=== PATIENT | female | born 1975 | race Caucasian/White ===

== ENCOUNTER 2022-11-17 14:59 | Emergency (ER) | payer BC ==
[~2022-11-17] VITALS: Ht 162.6 cm; Wt 53.1 kg
[2022-11-17] MEDS ORDERED: IV NORMAL SALINE 1000 ML BAG IV ONE (15:15)
[2022-11-17 15:27] LABS: HEMATOCRIT 37.5 % (31.2-41.9); MEAN CORPUSCULAR HEMOGLOBIN 26.5 uug (24.7-32.8); MEAN CORPUSCULAR VOLUME 79.5 fL (75.5-95.3); PLATELET COUNT (AUTO) 190 K/uL (179-408)
[2022-11-17 15:33] LABS: *BILIRUBIN,URIN NEGATIVE (NEGATIVE); *CLARITY,URINE CLEAR (CLEAR); *COLOR,URINE YELLOW (YELLOW); *KETONES,URINE NEGATIVE (NEGATIVE); *UROBILINOGEN,URINE 0.2 E.U./dl (NORMAL); LEUKOCYTE ESTERASE ,URINE NEGATIVE (NEGATIVE); NITRITE, URINE NEGATIVE (NEGATIVE); PH,URINE 6.5 (5.0-8.0); UGLUCOSE NEGATIVE (NEGATIVE)
[2022-11-17 15:34] LABS: *URINE HCG, QUAL NEG (NEGATIVE)
[2022-11-17 15:35] LABS: *BLOOD, URINE TRACE (NEGATIVE)
[2022-11-17 15:35] LABS: POTASSIUM 3.5 mmol/L (3.5-5.1)
[2022-11-17 15:41] LABS: BILIRUBIN,DIRECT 0.2 mg/dL (0.0-0.2); BILIRUBIN,TOTAL 1.1 mg/dL (0.2-1.0); TOTAL PROTEIN, SERUM 6.4 g/dL (6.4-8.2)
[2022-11-17] MEDS ORDERED: OMEP40CA21 PO (16:09)
--- NOTE | 2022-11-17 16:27 | NUR ---
Patient is resting comfortably on gurney. PATIENT IS PAIN FREE AT THIS TIME.
[2022-11-17 16:32] LABS: BACTERIA,URINE NONE SEEN /HPF (NONE SEEN); RBC,URINE 0-3 /HPF (0-3); WBC,URINE 80-100 /HPF (0-3)
[2022-11-17 16:33] LABS: SQUAMOUS EPITHELIAL CELL,UR FEW /HPF (NONE SEEN)
--- NOTE | 2022-11-17 16:56 | NUR ---
IV removed. Catheter intact and site benign. Pressure and 4x4 gauze applied to site. No bleeding noted. Patient discharged to home by Dr Lerner in stable condition with brisk steady gait. Written and verbal after care instructions given. Patient verbalized understanding and compliance of instructions. Stressed follow up with primary doctor or return to ER for worsening s/s.
[2022-11-17 16:57] VITALS: BP 121/73
== END 2022-11-17 16:57 | disposition home or self-care (01) ==
LOC: ER 14:59
DX: R10.13 Epigastric pain (principal); Z79.899 Other long term (current) drug therapy
CPT/HCPCS: 99284; 96360; 76705; 80076; 80048; 81001; 84703; 83690; 85025; 36415; J7040; A4663